=== PATIENT | female | born 1960 | race Caucasian/White ===

== ENCOUNTER 2023-11-12 09:20 | Outpatient (OUT) | payer OTHER, SELFPAY ==
--- NOTE | 2023-11-12 09:27 | MM_ITS ---
Patient Name: LEVI ALICIA MR#: [id number] : 1960 Exam Date: 11/12/2023 Ordering Doctor: JERMAIN MONTAÑO RADIOLOGY REPORT PROCEDURE: MM TOMOSYNTHESIS SCREENING BI COMPARISON: MG MAMM SCREEN 3D FRITZ CAD, 11/05/2022. MG MAMM SCREEN 3D FRITZ CAD, 10/18/2021. MG MAMM SCREEN 3D FRITZ CAD, 10/18/2021. MG MAMM SCREEN FRITZ W CAD, 10/06/2020. INDICATIONS: screening Calculator Name NCI Breast Cancer Risk Assessment Tool 5 Year Breast Cancer Risk n/a% Lifetime Breast Cancer Risk n/a% Personal Breast Cancer Yes, BREAST CA LT BREAST AGE40 Personal Ovarian Cancer No Treatments LT BREAST LUMPECTOMY WITH CHEMO AND RADIATION Family Cancers Sister with breast cancer at age 40; Aunt-maternal with breast cancer at age 80; Mother with colon cancer at age 75. LOCATION: [facility] BREAST COMPOSITION: Scattered areas fibroglandular density. FINDINGS: DIAGNOSTIC CATEGORY 0--INCOMPLETE: NEED ADDITIONAL IMAGING EVALUATION. RIGHT BREAST: No significant suspicious finding. Scattered benign-appearing lymph nodes are present. No significant change has occurred. LEFT BREAST: New 7 mm opacity within upper-outer quadrant, mid breast. Stable postsurgical scarring and calcifications within posterior upper-outer quadrant. Spot magnification views and ultrasound evaluation of new 7 mm opacity is recommended. RECOMMENDATIONS: ADDITIONAL MAMMOGRAPHIC VIEWS REQUIRED: LEFT BREAST - LEFT CRANIOCAUDAL SPOT MAGNIFICATION VIEW - LEFT OBLIQUE SPOT MAGNIFICATION VIEW - ULTRASOUND: LEFT BREAST PLEASE NOTE: A NORMAL MAMMOGRAM DOES NOT EXCLUDE THE POSSIBILITY OF BREAST CANCER. A CLINICALLY SUSPICIOUS PALPABLE LUMP SHOULD BE BIOPSIED. Dictated by: Kleber Todd M.D. on 11/14/2023 at 10:37 Approved by: Kleber Todd M.D. on 11/14/2023 at 10:41
--- NOTE | 2023-11-12 09:27 | XR_ITS ---
[address] [address] Patient Name: LEVI ALICIA MRN: [id number] date: 1960 Sex: F Assigned Patient Location: [facility] Current Patient Location: [facility] Accession/Order Number: [id number] Exam Date: 11/12/2023 09:45 Report Date: 11/12/2023 10:22 At the request of: JERMAIN MONTAÑO Procedure: XR DEXA axial skeleton EXAMINATION: XR DEXA axial skeleton HISTORY: post menopausal Z78.0 COMPARISON: No relevant comparison available. TECHNIQUE: Dual-energy X-ray absorptiometry (DXA) was performed. FINDINGS: SPINE ANALYSIS: Average bone mineral density is 1.689 g/cm2. T-score (standard deviation relative to young adult mean): 4.2 . HIP ANALYSIS: Lowest bone mineral density is within the left femoral neck, 1.349 g/cm2. T-score (standard deviation relative to young adult mean): 2.2 . XR/XR DEXA axial skeleton IMPRESSION: World [employer] Classification: Normal - Low Fracture Risk Electronically authenticated by: PALMER MADERA Date: 11/12/2023 10:22
== END 2023-11-12 09:21 | disposition home or self-care (01) ==
LOC: MAMMO 09:20
PROVIDERS: PCP Family Medicine
DX: Z12.31 Encounter for screening mammogram for malignant neoplasm of breast (principal); Z80.3 Family history of malignant neoplasm of breast; Z80.0 Family history of malignant neoplasm of digestive organs; N64.89 Other specified disorders of breast; Z78.0 Asymptomatic menopausal state
CPT/HCPCS: 77063; 77067; 77080

== ENCOUNTER 2023-11-19 08:41 | Outpatient (OUT) | payer OTHER, SELFPAY ==
--- NOTE | 2023-11-19 08:45 | MM_ITS ---
Patient Name: LEVI ALICIA MR#: [id number] : 1960 Exam Date: 11/19/2023 Ordering Doctor: DR BRIELLE BARNARD RADIOLOGY REPORT PROCEDURE: MM DIAGNOSTIC MAMMO UNILAT LT, 11/19/2023, 07:52 US BREAST LT LIMITED, 11/19/2023, 09:09 COMPARISON: MG MAMM SCREEN 3D FRITZ CAD, 11/05/2022. MM TOMOSYNTHESIS SCREENING BI, 11/12/2023. INDICATIONS: Abnormal Mammogram R92.8 Calculator Name NCI Breast Cancer Risk Assessment Tool 5 Year Breast Cancer Risk n/a% Lifetime Breast Cancer Risk n/a% Personal Breast Cancer Yes, BREAST CA LT BREAST AGE40 Personal Ovarian Cancer No Treatments LT BREAST LUMPECTOMY WITH CHEMO AND RADIATION Family Cancers Sister with breast cancer at age 40; Aunt-maternal with breast cancer at age 80; Mother with colon cancer at age 75. LOCATION: [facility] BREAST COMPOSITION: Scattered areas fibroglandular density. FINDINGS: DIAGNOSTIC CATEGORY 4--SUSPICIOUS FOR MALIGNANCY. FINDING DOES NOT EXHIBIT CLASSIC FINDINGS OF BREAST CANCER: Two spot compression views demonstrate a persistent 5 mm nodule with calcification upper outer quadrant. Ultrasound demonstrates at the 12 o'clock position a 5.3 x 3.2 x 4.3 mm area of oval hypoechogenicity with slightly angular margins and a single 1 mm calcification. Given the increase in size from the prior exam ultrasound core biopsy is recommended RECOMMENDATIONS: ULTRASOUND-GUIDED CORE BIOPSY: LEFT BREAST PLEASE NOTE: A NORMAL MAMMOGRAM DOES NOT EXCLUDE THE POSSIBILITY OF BREAST CANCER. A CLINICALLY SUSPICIOUS PALPABLE LUMP SHOULD BE BIOPSIED. Dictated by: Trung Porter MD on 11/19/2023 at 09:21 Approved by: Trung Porter MD on 11/19/2023 at 09:25
== END 2023-11-19 08:42 | disposition home or self-care (01) ==
LOC: MAMMO 08:41
PROVIDERS: PCP Family Medicine; Visit Provider Family Medicine
DX: R92.8 Other abnormal and inconclusive findings on diagnostic imaging of breast (principal); Z80.3 Family history of malignant neoplasm of breast; Z80.0 Family history of malignant neoplasm of digestive organs; Z85.3 Personal history of malignant neoplasm of breast; N63.21 Unspecified lump in the left breast, upper outer quadrant
CPT/HCPCS: 76642; 77065

== ENCOUNTER 2023-11-28 07:48 | Day surgery (SDC) | payer OTHER, SELFPAY ==
--- NOTE | 2023-11-28 07:54 | US_ITS ---
[address] [address] Patient Name: LEVI ALICIA MRN: [id number] date: 1960 Sex: F Assigned Patient Location: [place] Current Patient Location: [place] Accession/Order Number: [id number] Exam Date: 11/28/2023 08:25 Report Date: 11/28/2023 09:16 At the request of: JERMAIN MONTAÑO Procedure: US breast vac bx w/ clip LT EXAM: US breast vac bx w/ clip LT HISTORY: Left Breast 12 O'clock Nodule COMPARISON: Ultrasound breast left Limited 11/19/2023, diagnostic mammography 11/19/2023 TECHNIQUE: After obtaining informed consent, ultrasound-guided biopsy was performed in the usual sterile manner. The location of the biopsy was then marked as indicated below. FINDINGS: Specimen #, Location: 3 core samples; 6 mm lobular nodule 12:00 left breast. Biopsy Needle: 13 gauge vacuum core biopsy needle. Marker(s): A single metallic marker was placed in the appropriate targeted location. Medication: Buffered 1% Lidocaine with epinephrine administered locally. Complications: None. Pathology: Pending. US/US breast vac bx w/ clip LT IMPRESSION: 1. Uneventful ultrasound-guided breast biopsy. 2. Pathology results are pending. An addendum to this report will be provided after pathology results are available. Electronically authenticated by: PALMER MADERA Date: 11/28/2023 09:16
--- NOTE | 2023-11-28 07:54 | MM_ITS ---
Patient Name: LEVI ALICIA MR#: [id number] : 1960 Exam Date: 11/28/2023 Ordering Doctor: JERMAIN MONTAÑO RADIOLOGY REPORT PROCEDURE: MM POST BIOPSY LT COMPARISON: US BREAST VAC BX W/ CLIP LT, 11/28/2023. MM DIAGNOSTIC MAMMO UNILAT LT, 11/19/2023. MM TOMOSYNTHESIS SCREENING BI, 11/12/2023. MG MAMM SCREEN 3D FRITZ CAD, 11/05/2022. MG MAMM SCREEN 3D FRITZ CAD, 10/18/2021. INDICATIONS: Left Breast 12 O'clock Nodule BREAST COMPOSITION: FINDINGS: Post-Procedure Mammogram for Marker Placement BIOPSY MARKER: A metallic marker has been placed in the targeted location within the upper-outer quadrant of the left breast. BREAST FINDINGS: Expected post biopsy findings. RECOMMENDATIONS: Dictated by: Kleber Todd M.D. on 11/28/2023 at 13:42 Approved by: Kleber Todd M.D. on 11/28/2023 at 13:44
[2023-11-28 08:00] VITALS: BP 144/85; PULSE 90; O2SAT 96
[2023-11-28] MEDS: LIDOCAINE HCL 10 ML, SODIUM BICARBONATE 1 MEQ INJ (08:45)
[2023-11-28] MEDS: LIDOCAINE HCL/EPINEPHRINE 10 ML, SODIUM BICARBONATE 1 MEQ INJ (08:45)
--- NOTE | 2023-11-28 09:47 | SUR.PREOP ---
11/19/23 Instructed pt on procedure,date, time, and prep. Pt made aware to hold ASA x 5 days prior to biopsy.
== END 2023-11-28 09:10 | disposition home or self-care (01) ==
LOC: US 07:48
PROVIDERS: Radiology Diagnostic Radiology; PCP Family Medicine
DX: N63.25 Unspecified lump in the left breast, overlapping quadrants (principal)
CPT/HCPCS: 19083; 77065; 88305; 99999

== ENCOUNTER 2024-07-07 09:20 | Outpatient (OUT) | payer OTHER, SELFPAY ==
--- NOTE | 2024-07-07 09:23 | MM_ITS ---
Patient Name: LEVI ALICIA MR#: [id number] : 1960 Exam Date: 07/07/2024 Ordering Doctor: JERMAIN MONTAÑO RADIOLOGY REPORT PROCEDURE: MM TOMOSYNTHESIS DIAGNOSTIC LT COMPARISON: MM POST BIOPSY LT, 11/28/2023. MM DIAGNOSTIC MAMMO UNILAT LT, 11/19/2023. MM TOMOSYNTHESIS SCREENING BI, 11/12/2023. MG MAMM SCREEN 3D FRITZ CAD, 11/05/2022. INDICATIONS: Abnormal Left Breast Mammogram, Subcutaneous Nodule Calculator Name NCI Breast Cancer Risk Assessment Tool 5 Year Breast Cancer Risk n/a% Lifetime Breast Cancer Risk n/a% Personal Breast Cancer Yes, BREAST CA LT BREAST AGE40 Personal Ovarian Cancer No Treatments LT BREAST LUMPECTOMY WITH CHEMO AND RADIATION Family Cancers Sister with breast cancer at age 40; Aunt-maternal with breast cancer at age 80; Mother with colon cancer at age 75. LOCATION: [facility] BREAST COMPOSITION: There are scattered areas of fibroglandular density. FINDINGS: DIAGNOSTIC CATEGORY 4--SUSPICIOUS FOR MALIGNANCY. FINDING DOES NOT EXHIBIT CLASSIC FINDINGS OF BREAST CANCER: LEFT BREAST: Mild thickening of the areola/adjacent skin; slightly greater than previously. No appreciable abnormality of the underlying fat and fibroglandular tissue. Stable calcifications, scarring, biopsy marker clip within upper-outer quadrant. Evaluate clinically for skin changes and consider skin punch biopsy if clinically indicated. RECOMMENDATIONS: SURGICAL CONSULTATION. SURGICAL BIOPSY: LEFT BREAST PLEASE NOTE: A NORMAL MAMMOGRAM DOES NOT EXCLUDE THE POSSIBILITY OF BREAST CANCER. A CLINICALLY SUSPICIOUS PALPABLE LUMP SHOULD BE BIOPSIED. Dictated by: Kleber Todd M.D. on 07/07/2024 at 09:57 Approved by: Kleber Todd M.D. on 07/07/2024 at 10:08
== END 2024-07-07 09:21 | disposition home or self-care (01) ==
LOC: MAMMO 09:20
PROVIDERS: PCP Family Medicine
DX: R92.8 Other abnormal and inconclusive findings on diagnostic imaging of breast (principal); N63.0 Unspecified lump in unspecified breast; Z80.3 Family history of malignant neoplasm of breast; Z80.0 Family history of malignant neoplasm of digestive organs
CPT/HCPCS: 77065; G0279

== ENCOUNTER 2024-12-15 09:19 | Outpatient (OUT) | payer OTHER, SELFPAY ==
--- NOTE | 2024-12-15 09:22 | MM_ITS ---
Patient Name: LEVI ALICIA MR#: [id number] : 1960 Exam Date: 12/15/2024 Ordering Doctor: DR BRIELLE BARNARD RADIOLOGY REPORT PROCEDURE: MM TOMOSYNTHESIS SCREENING BI COMPARISON: MM TOMOSYNTHESIS DIAGNOSTIC LT, 07/07/2024. MM POST BIOPSY LT, 11/28/2023. MM DIAGNOSTIC MAMMO UNILAT LT, 11/19/2023. MM TOMOSYNTHESIS SCREENING BI, 11/12/2023. INDICATIONS: Screening Calculator Name NCI Breast Cancer Risk Assessment Tool 5 Year Breast Cancer Risk n/a% Lifetime Breast Cancer Risk n/a% Personal Breast Cancer Yes, BREAST CA LT BREAST AGE40 Personal Ovarian Cancer No Treatments LT BREAST LUMPECTOMY WITH CHEMO AND RADIATION Family Cancers Sister with breast cancer at age 40; Aunt-maternal with breast cancer at age 80; Mother with colon cancer at age 75. LOCATION: [facility] BREAST COMPOSITION: There are scattered areas of fibroglandular density. FINDINGS: DIAGNOSTIC CATEGORY 1--NEGATIVE. RIGHT BREAST: No significant suspicious finding. LEFT BREAST: No significant suspicious finding. Grossly stable post treatment changes. RECOMMENDATIONS: ROUTINE MAMMOGRAM AND CLINICAL EVALUATION IN 12 MONTHS. PLEASE NOTE: A NORMAL MAMMOGRAM DOES NOT EXCLUDE THE POSSIBILITY OF BREAST CANCER. A CLINICALLY SUSPICIOUS PALPABLE LUMP SHOULD BE BIOPSIED. Dictated by: Jean-Paul Matthew DO on 12/15/2024 at 16:06 Approved by: Jean-Paul Matthew DO on 12/15/2024 at 16:07
== END 2024-12-15 09:20 | disposition home or self-care (01) ==
LOC: MAMMO 09:20
PROVIDERS: PCP Family Medicine; Visit Provider Family Medicine
DX: Z12.31 Encounter for screening mammogram for malignant neoplasm of breast (principal); Z85.3 Personal history of malignant neoplasm of breast; Z80.3 Family history of malignant neoplasm of breast; Z80.0 Family history of malignant neoplasm of digestive organs
CPT/HCPCS: 77063; 77067